=== PATIENT | male | born 1935 | race Caucasian/White ===

== ENCOUNTER 2020-03-16 12:13 | Outpatient (CLI) | payer MEDICARE, MEDICAID, SELFPAY ==
[2020-03-16 13:16] LABS: Alanine Aminotransferase 12 U/L (4-50); Albumin Level 3.9 g/dL (3.5-5.1); Alkaline Phosphatase 46 U/L (38-126); Anion Gap 6 mmol/L (8-16); Aspartate Amino Transferase 22 U/L (17-59); Bilirubin,Total 0.4 mg/dL (0.2-1.3); Blood Urea Nitrogen 34 mg/dL (9-20); Calcium 9.8 mg/dL (8.4-10.2); Carbon Dioxide 36 mmol/L (22-30); Chloride 99 mmol/L (98-107); Estimated Glomerular Filt Rate > 60; Glucose 162 mg/dL (75-110); Potassium 4.1 mmol/L (3.4-5.0); Sodium 141 mmol/L (137-145)
[2020-03-16 13:18] LABS: Hemoglobin A1C 5.8 % (<5.7)
== END 2020-03-16 12:14 | disposition home or self-care (01) ==
PROVIDERS: PCP Internal Medicine; Visit Provider Internal Medicine
DX: E11.40 Type 2 diabetes mellitus with diabetic neuropathy, unspecified (principal); I10 Essential (primary) hypertension
CPT/HCPCS: 36415; 80053; 83036

== ENCOUNTER 2020-11-08 11:53 | Outpatient (CLI) | payer MEDICARE, MEDICAID, SELFPAY ==
[2020-11-08 12:38] LABS: Hemoglobin A1C 6.3 % (<5.7)
[2020-11-08 12:54] LABS: LDL Cholesterol Direct 39 mg/dL
[2020-11-08 13:05] LABS: Alanine Aminotransferase 14 U/L (4-50); Albumin Level 3.9 g/dL (3.5-5.1); Alkaline Phosphatase 46 U/L (38-126); Anion Gap 4 mmol/L (8-16); Aspartate Amino Transferase 25 U/L (17-59); Bilirubin,Total 0.4 mg/dL (0.2-1.3); Blood Urea Nitrogen 36 mg/dL (9-20); Calcium 9.8 mg/dL (8.4-10.2); Carbon Dioxide 37 mmol/L (22-30); Chloride 100 mmol/L (98-107); Cholesterol 265 mg/dL (0-200); Estimated Glomerular Filt Rate > 60; Glucose 207 mg/dL (75-110); Potassium 3.8 mmol/L (3.4-5.0); Sodium 141 mmol/L (137-145)
[2020-11-08 13:11] LABS: Triglycerides 1080 mg/dL (<150)
== END 2020-11-08 11:54 | disposition home or self-care (01) ==
LOC: ANHLAB 11:56
PROVIDERS: PCP Internal Medicine; Visit Provider Nurse Practitioner
DX: E78.5 Hyperlipidemia, unspecified (principal); E11.9 Type 2 diabetes mellitus without complications
CPT/HCPCS: 36415; 80053; 80061; 83036

== ENCOUNTER 2021-03-15 08:37 | Outpatient (CLI) | payer MEDICARE, MEDICAID, SELFPAY ==
[2021-03-15 09:44] LABS: LDL Cholesterol Direct 39 mg/dL
[2021-03-15 09:54] LABS: Alanine Aminotransferase 16 U/L (4-50); Albumin Level 4.1 g/dL (3.5-5.1); Alkaline Phosphatase 43 U/L (38-126); Anion Gap 5 mmol/L (8-16); Aspartate Amino Transferase 31 U/L (17-59); Bilirubin,Total 0.8 mg/dL (0.2-1.3); Blood Urea Nitrogen 38 mg/dL (9-20); Calcium 9.6 mg/dL (8.4-10.2); Carbon Dioxide 35 mmol/L (22-30); Chloride 100 mmol/L (98-107); Cholesterol 266 mg/dL (0-200); Estimated Glomerular Filt Rate > 60; Glucose 162 mg/dL (65-110); Potassium 4.3 mmol/L (3.4-5.0); Sodium 140 mmol/L (137-145)
[2021-03-15 09:59] LABS: Hemoglobin A1C 6.6 % (<5.7)
[2021-03-15 10:31] LABS: Triglycerides 1040 mg/dL (<150)
== END 2021-03-15 08:38 | disposition home or self-care (01) ==
PROVIDERS: PCP Internal Medicine; Visit Provider Internal Medicine
DX: E78.5 Hyperlipidemia, unspecified (principal); E11.40 Type 2 diabetes mellitus with diabetic neuropathy, unspecified; I10 Essential (primary) hypertension; E11.65 Type 2 diabetes mellitus with hyperglycemia; Z79.4 Long term (current) use of insulin
CPT/HCPCS: 36415; 80053; 80061; 83036

== ENCOUNTER 2021-10-02 08:20 | Outpatient (CLI) | payer MEDICARE, MEDICAID, SELFPAY ==
[2021-10-02 08:58] LABS: Alanine Aminotransferase 21 U/L (4-50); Albumin Level 3.8 g/dL (3.5-5.1); Alkaline Phosphatase 52 U/L (38-126); Anion Gap 1 mmol/L (8-16); Aspartate Amino Transferase 30 U/L (17-59); Bilirubin,Total 0.5 mg/dL (0.2-1.3); Blood Urea Nitrogen 40 mg/dL (9-20); Calcium 9.6 mg/dL (8.4-10.2); Carbon Dioxide 37 mmol/L (22-30); Chloride 101 mmol/L (98-107); Cholesterol 306 mg/dL (0-200); Estimated Glomerular Filt Rate > 60; Glucose 184 mg/dL (65-110); Potassium 3.9 mmol/L (3.4-5.0); Sodium 139 mmol/L (137-145)
[2021-10-02 09:08] LABS: LDL Cholesterol Direct 42 mg/dL
[2021-10-02 09:16] LABS: Triglycerides 1123 mg/dL (<150)
[2021-10-02 09:31] LABS: Creatinine Urine 91.7 mg/dL
[2021-10-02 11:04] LABS: Microalbumin Urine Random > 1140.0 mg/L (0-16.7)
== END 2021-10-02 08:21 | disposition home or self-care (01) ==
LOC: ANHLAB 08:24
PROVIDERS: PCP Internal Medicine; Visit Provider Nurse Practitioner
DX: E11.40 Type 2 diabetes mellitus with diabetic neuropathy, unspecified (principal); E78.5 Hyperlipidemia, unspecified
CPT/HCPCS: 36415; 80053; 80061; 82043; 83036

== ENCOUNTER 2021-11-29 14:10 | Observation (INO) | payer MEDICARE, MEDICAID, SELFPAY ==
[2021-11-29] VITALS (13 sets, daily range): BP systolic 129–178; BP diastolic 56–73; PULSE 66–73; RESP 22–31; TEMP 36.5–37.1; O2SAT 90–93; BMI 28.8
--- NOTE | ~2021-11-29 | XR_ITS ---
EXAMINATION: XR chest 2V DATE: 11/29/2021 14:56 INDICATION: Shortness of breath and cough. TECHNIQUE: Frontal and lateral views of the chest were obtained. COMPARISON: Chest 2 views 01/07/2008 FINDINGS: There is mild elevation of right hemidiaphragm. There is a mass in right midlung zone. No p leural effusion or pneumothorax. The heart size is normal. There are surgical clips in left neck and left axilla. IMPRESSION: 1. Mass in right midlung zone suspicious for malignancy. Noncontrast chest CT is recommended. Reviewed, dictated and finalized at location [facility]. IMPRESSION: 1. Mass in right midlung zone suspicious for malignancy. Noncontrast chest CT i s recommended.
--- NOTE | ~2021-11-29 | CT_ITS ---
EXAMINATION: CT diagnostic chest wo con DATE: 11/29/2021 15:32 INDICATION: Mass in right mid lung zone suspicious for malignancy reported on 11/29/2021 2 view chest. Shortness of breath and cough. TECHNIQUE: Computed tomography (CT) of the chest was performed without intravenous contrast. Automate d exposure control and iterative reconstruction technique were employed. Exam dose: 385.39 mGy-cm to jose cruz exam DLP. COMPARISON: 11/29/2021 2 view chest FINDINGS: Up to 4.6 cm anteroposterior 6.2 cm wide right upper lobe irregular soft tissue mass lesion consisten t with right upper lobe pulmonary malignancy. There is superior mediastinal lymphadenopathy, measuring up to 1.6 x 2 cm. There is right paratrachea l lymphadenopathy, measuring up to 1.4 x 1.7 cm. There is extensive right hilar adenopathy. 12 x 16 mm subcarinal lymph node. There is mild right upper lobe atelectasis and posterior segment infiltrate. Normal heart size. No pericardial or pleural effusion. There is extensive coronary artery calcificati on. There is prominent thoracic aortic as well as great vessel calcification. There is mild aneurysmal change of the posterior aortic arch which measures up to 3.5 cm diameter. Included portions of the adrenal glands are unremarkable. There are calcified hepatic and splenic granulomas consistent with old granulomatous disease. Very prominent degenerative change of the cervical spine and diffuse idiopathic skeletal hyperostosis of the thoracic spine. No suspicious osteolytic or osteoblastic lesions are noted.. 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 Reviewed, dictated and finalized at location [facility]. 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
--- NOTE | 2021-11-29 14:15 | ECG_ITS ---
Measurements Intervals [place] Rate: 72 P: 57 WI: 165 QRS: -19 QRSD: 89 T: 74 QT: 397 QTc: 436 Interpretive Statements SINUS RHYTHM INDETERMINATE AXIS INFERIOR MYOCARDIAL INFARCTION , OF INDETERMINATE AGE WITH POSTERIOR EXTENSION [40+ ms Q WAVE AND/OR ST/T ABNORMALITY IN II/aV NO PREVIOUS ECG AVAILABLE FOR COMPARISON Electronically Signed On 11-29-2021 14:46:31 CDT by Omero Page M.D.
--- NOTE | 2021-11-29 14:23 | PC.NURSE ---
reports she thinks patient is having trouble with his sinus drainage and keeps choking on his mucous. His reports it was green at first then blood tinged.
[2021-11-29 14:46] LABS: Basophils Percent Auto 0.4 % (0.2-1.2); Eosinophils Percent Auto 0.3 % (0-4.4); Hematocrit 49.6 % (42.0-52.0); Hemoglobin 15.9 g/dL (14.0-18.0); Immature Granulocyte Absolute 0.02 K/mm3 (0.00-0.031); Immature Granulocyte Percent A 0.3 % (0-0.5); Lymphocytes Absolute Auto 1.17 K/mm3 (0.9-3.2); Lymphocytes Percent Auto 16.8 % (18.3-44.2); Mean Corpuscular HGB Conc 32.1 g/dl (32-36); Mean Corpuscular Hemoglobin 33.8 pg (26-34); Mean Corpuscular Volume 105.3 fl (80-100); Mean Platelet Volume 11.7 fl (7.4-10.4); Monocytes Absolute Auto 0.4 K/mm3 (0.1-0.6); Monocytes Percent Auto 5.5 % (2.6-8.5); Neutrophils Absolute Auto 5.3 K/mm3 (1.3-6.7); Neutrophils Percent Auto 76.7 % (45.5-73.1); Nucleated Red Blood Cells Perc 0.3 % (0.0-0.2); Platelet Count Result 220 k/mm3 (150-375); Red Blood Count 4.71 M/mm3 (4.6-6.20); Red Cell Distribution Width 14.3 % (11.5-14.5)
[2021-11-29 14:57] LABS: Alanine Aminotransferase 147 U/L (6-50); Albumin Level 3.4 g/dL (3.5-5.1); Alkaline Phosphatase 165 U/L (38-126); Anion Gap 4 mmol/L (8-16); Aspartate Amino Transferase 104 U/L (17-59); Bilirubin,Total 0.7 mg/dL (0.2-1.3); Blood Urea Nitrogen 35 mg/dL (9-20); Calcium 8.8 mg/dL (8.4-10.2); Carbon Dioxide 30 mmol/L (22-30); Chloride 105 mmol/L (98-107); Estimated Glomerular Filt Rate > 60; Glucose 284 mg/dL (65-110); Potassium 4.6 mmol/L (3.4-5.0); Sodium 139 mmol/L (137-145)
[2021-11-29] MEDS: ALBUTEROL SULFATE NEB 2.5 MG/0.5 ML INH 5 MG (15:13)
[2021-11-29] MEDS: IPRATROPIUM BR 0.02% INH SOLN 0.5 MG/2.5 ML VIAL INHALATION (15:14)
--- NOTE | 2021-11-29 15:23 | ED.SOB ---
HPI - SOB/Dyspnea General Chief Complaint: Shortness of Breath/Dyspnea Stated Complaint: resp distress Time Seen by Provider: 11/29/21 14:18 History of Present Illness HPI Narrative: Patient is an 86-year-old male who presents ER with shortness of breath. Over the last few days patient has been having sinus congestion with postnasal drip. believes he is having trouble handling the congestion because he has chronic dysphagia related to oral cancer he had in the past. EMS found patient be hypoxic 88% on room air. Patient is not typically oxygen dependent. He denies any chest pain or chest pressure. He does have a coarse cough that is new over the last couple days as well. No known sick contacts as patient has not been leaving his home. Related Data Home Medications Medication Instructions Recorded Confirmed diphenhydramine 25 1 tablet PO HS PRN Insomnia 11/29/21 11/29/21 mg-acetaminophen 500 mg tablet (Tylenol PM Extra Strength) hydrocodone 7.5 mg-acetaminophen 15 ml PO Q4H PRN Pain 11/29/21 11/29/21 325 mg/15 mL oral solution Allergies Allergy/AdvReac Type Severity Reaction Status Date / Time ezetimibe Allergy Severe Confusion Verified 10/03/21 12:19 Review of Systems Review of Systems: All systems reviewed & are unremarkable except as noted in HPI and below Constitutional: Constitutional: Reports chills, Denies fatigue and Denies fever(s) ENT: Reports nasal congestion and Denies sore throat Cardiovascular: Cardiovascular: Denies chest pain Respiratory: Respiratory: Reports cough, Reports dyspnea and Denies wheezing Gastrointestinal: Gastrointestinal: Denies abdominal pain, Denies nausea and Denies vomiting [facility] Past Medical History Medical History Squamous cell carcinoma of head and neck Family History Family History Mother Acute myocardial infarction, Onset Age: 83 Patient's mother is Other Cerebrovascular accident Family history of arthritis Family history of blood dyscrasia Family history of cardiovascular disease Hypertension Social History Social History Smoking packs per day: 2 Smoking cigarettes per day: 40.0 Years smoked: 50 Smoking pack-years: 100.00 Smoking status: Former smoker Second hand tobacco smoke exposure: No Alcohol intake: unknown Substance use: unknown Substance use type: unknown Spiritual care concerns: No Exam Narrative: GENERAL: Chronically ill-appearing, well-nourished, and in no acute distress. HEAD: Normocephalic, atraumatic. EYES: PERRL and EOMI. ENT: Mucous membranes moist. NECK: Supple. Tracheostomy scar noted. CHEST: Coarse rales left mid and lower lung zones with frequent coughing. Clear lung sounds on the right and referred upper airway sounds are not made. HEART: Regular rate and rhythm. Normal peripheral pulses. ABDOMEN: Soft, nontender, nondistended. EXTREMITIES: Normal range of motion. No edema. SKIN: Warm, dry, no rash. NEURO: Alert and oriented x3. PSYCH: Normal mood and affect. Course Course Emergency Course: Patient resting comfortably, improving with neb treatment. Will recommend observation for COPD exacerbation with hypoxia. Also will require work-up for this lung mass. Patient family report that when he hit ended his radiation treatment previously it was just a tiny spot. They have not been to [facility] in a couple of years. [place] Vital Signs Vital signs: Vital Signs Temperature 98.7 F 11/29/21 14:10 Pulse Rate 66 11/29/21 14:10 Respiratory Rate 24 H 11/29/21 14:10 Blood Pressure 169/65 H 11/29/21 14:10 Pulse Oximetry 92 11/29/21 14:10 Oxygen Delivery Room Air 11/29/21 14:10 Temperature 97.8 F 11/29/21 19:16 Pulse Rate 66 0
[2021-11-29 15:25] LABS: Influenza A QL RT-PCR Negative (Negative); Influenza B QL RT-PCR Negative (Negative); SARS-CoV-2 RNA PCR Negative
[2021-11-29] MEDS: methylPREDNISolone SOD SUCC 125 MG VIAL 60 MG IV PUSH (16:50)
--- NOTE | 2021-11-29 17:04 | PC.NURSE ---
Patient's is Corrina. Her phone number is [phone]. She reports she will be back around noon tomorrow.
--- NOTE | 2021-11-29 18:14 | ADMGEN ---
This patient, Ever Quesada, was admitted to Medical Room 340-01. Patient/family oriented to hospital policies and general routines including ID bracelet, bed and alarms, visiting hours, pain management, procedures, bathroom and other care routines, personal items, smoking policy, room service/diet, and visiting hours. Information on how to activate the Rapid Response Team has been discussed. Patient/Family are encouraged to report perceived risks to care and to ask questions if they do not understand what they are told or what they should do.
[2021-11-29 18:37] LABS: Glucose Point of Care 275 mg/dl (65-105)
--- NOTE | 2021-11-29 18:53 | PC.NURSE ---
SAMAN ZELAYA AT BEDSIDE WHEN PT VOICED CONCERNS ABOUT WANTING TO END HIS LIFE.
--- NOTE | 2021-11-29 19:45 | PM.IMHP ---
H&P: HPI History of Present Illness Date/Time: 11/29/21 19:45 Chief Complaint: Shortness of breath. Narrative: This is a very pleasant 86-year-old male with history of oropharyngeal squamous cell carcinoma, lung cancer, prostate cancer, COPD, hypertension, chronic kidney disease, and diabetes who presented to the emergency department via EMS from home for evaluation of shortness of breath. He is very hard of hearing and does not have his hearing aids with him at this time though if spoken to loudly in the right ear he is able to hear reasonably well to answer questions. He had a partial mandibulectomy and neck dissection for his oropharyngeal cancer and thus his speech is slurred but I was able to understand a majority of what he said. His provides additional information at bedside, with the patient's permission. He has a history of tracheostomy and has a chronic G-tube but he does drink water on occasion though he admits that he has difficulty swallowing and will cough almost every time he tries to left to take a drink. The last several days he has developed sinus congestion and postnasal drip and despite a strong cough, he seems to be having difficulties with his secretions. He has been coughing up thick white/light yellow mucus and 2 nights ago he coughed up a fairly large blood clot that he believes came from his lungs. This morning he seemed to be increasingly short of breath and his called 911. On EMS arrival his SpO2 was 88% on room air and he was given a DuoNeb with improvement in aeration and shortness of breath. Chest x-ray showed a mass in the right upper and a subsequent chest CT showed a 4.6 x 6.2 cm right upper lobe mass with lymphadenopathy consistent with lung cancer. Several years ago he was told about a spot on his long however it was felt that these changes were due to previous radiation though he was told on several other occasions that the area was increasing in size. He does not really want to go back to [place] and is okay with seeing the oncologist here however he is not certain that he will pursue treatment. He is going to speak with his and his 3 sons this weekend and he would even consider hospice. Understandably he is a bit anxious when discussing end of life plans and his ultimate goal is to pass comfortably. He is fearful of a painful and in fact when he was receiving treatment for his cancer, he admitted to me that he had thoughts of taking his gun and shooting himself so he was no longer in pain. That was a couple of years ago and he has not had recurrent thoughts of suicide and tells me that he would never do that to his family. At the time my evaluation he is resting comfortably and watching the ball game. He denies fever, chills, sweats, sore throat, chest pain, pleuritic pain, palpitations, abdominal pain, dysuria, and diarrhea. No sick contacts. Review of Systems Review of Systems: Twelve systems were reviewed and are negative except for as per HPI. [facility] Past Medical History Medical History (Updated 11/29/21 @ 22:28 by Belkys Dominguez PA-C) Chronic obstructive pulmonary disease Depression Diabetic peripheral neuropathy Essential (primary) hypertension History of gastrostomy tube placement Insulin dependent type 2 diabetes mellitus Mixed hyperlipidemia Squamous cell carcinoma of head and neck Surgical History Surgical History (Updated 11/29/21 @ 22:12 by Belkys Dominguez PA-C) History of radical neck dissection With partial mandibulectomy, partial palatectomy, and partial maxillectomy with scapular flap and tracheostomy for treatment of oropharyngeal carcinoma. 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 History of tracheostomy Family History Family History Mother Acute myocardial infarction, Onset Age: 83 Patient's mother is
[2021-11-29] MEDS: MORPHINE SULFATE (*CRX) 4 MG/ML INJ IV PUSH (21:36)
[2021-11-29 23:56] LABS: Glucose Point of Care 265 mg/dl (65-105)
[2021-11-30] VITALS (13 sets, daily range): BP systolic 134–148; BP diastolic 42–60; PULSE 69–83; RESP 20–28; TEMP 36.7–36.8; O2SAT 81–98
[2021-11-30] MEDS: methylPREDNISolone SOD SUCC 125 MG VIAL 60 MG IV PUSH ×3 (00:06→12:10)
[2021-11-30] MEDS: Acetaminophen/HYDROcodone ELIXIR (*CRX) 7.5 MG/15 ML UDC PO ×3 (00:58→12:08)
[2021-11-30] MEDS: ALBUTEROL SULFATE NEB 2.5 MG/3 ML INH INHALATION ×4 (05:05→19:12)
[2021-11-30] MEDS: IPRATROPIUM BR 0.02% INH SOLN 0.5 MG/2.5 ML VIAL INHALATION ×4 (05:06→19:11)
[2021-11-30 05:44] LABS: Hemoglobin A1C 8.2 % (<5.7)
[2021-11-30 05:53] LABS: Alanine Aminotransferase 147 U/L (6-50); Albumin Level 3.4 g/dL (3.5-5.1); Alkaline Phosphatase 167 U/L (38-126); Anion Gap 5 mmol/L (8-16); Aspartate Amino Transferase 72 U/L (17-59); Bilirubin,Total 0.7 mg/dL (0.2-1.3); Blood Urea Nitrogen 35 mg/dL (9-20); Carbon Dioxide 30 mmol/L (22-30); Chloride 102 mmol/L (98-107); Estimated CRCL calculation 46 ml/min; Estimated Glomerular Filt Rate > 60; Glucose 327 mg/dL (65-110); Magnesium 2.2 mg/dL (1.6-2.3); Sodium 137 mmol/L (137-145)
[2021-11-30 06:06] LABS: Hematocrit 50.8 % (42.0-52.0); Hemoglobin 15.8 g/dL (14.0-18.0); Mean Corpuscular HGB Conc 31.1 g/dl (32-36); Mean Corpuscular Hemoglobin 33.2 pg (26-34); Mean Corpuscular Volume 106.7 fl (80-100); Mean Platelet Volume 11.5 fl (7.4-10.4); Platelet Count Result 212 k/mm3 (150-375); Red Blood Count 4.76 M/mm3 (4.6-6.20); Red Cell Distribution Width 13.9 % (11.5-14.5); White Blood Count 7.3 K/mm3 (4.5-10.0)
[2021-11-30 06:18] LABS: Prothrombin Time 12.7 Seconds (11.1-14.7)
[2021-11-30 07:07] LABS: Hepatitis B Surface Antigen Negative (Negative)
[2021-11-30 07:12] LABS: HAV RESULT Negative (Negative); Hepatitis B Core IgM Result Negative (Negative)
[2021-11-30 07:24] LABS: Hepatitis C Virus Antibody Negative (Negative)
[2021-11-30 07:59] LABS: Glucose Point of Care 330 mg/dl (65-105)
[2021-11-30] MEDS: INSULIN ASPART (*BKC) 100 UNITS/ML SUB-Q (08:17)
[2021-11-30] MEDS: FLUTICASONE PROPIONATE 0.05% NA SPR 16 GM BTL (*BKC) 2 SPRAY NASAL (08:18)
[2021-11-30] MEDS: ASPIRIN 81 MG ENTERIC TABLET PO (08:18)
[2021-11-30] MEDS: lisinopriL 2.5 MG TABLET PO (08:18)
[2021-11-30] MEDS: INSULIN ASPART (*BKC) 100 UNITS/ML 10 UNITS SUB-Q ×2 (12:09→16:43)
[2021-11-30 12:10] LABS: Glucose Point of Care 465 mg/dl (65-105)
--- NOTE | 2021-11-30 13:04 | PM.IMPN ---
Progress Note: A&P Assessment and Plan (1) Mass of upper lobe of right lung: Code(s): R91.8 - Other nonspecific abnormal finding of lung field Status: Acute Assessment and Plan: Patient with cough and SOB. He had an episode of hemopysis as well. CT chest shows a 4.6 x 6.2 cm right upper lobe mass with extensive lymphadenopathy consistent with right upper lobe carcinoma. He was previously treated at [place] for his oropharyngeal carcinoma but he does not wish to return there at this time. He is considering hospice and will discuss with his family. (2) COPD exacerbation: Code(s): J44.1 - Chronic obstructive pulmonary disease with (acute) exacerbation Status: Acute Assessment and Plan: Shortness of breath improved with DuoNebs and Solu-Medrol. No evidence of pneumonia on imaging but started on azithromycin given the productive cough. No further wheezing so will change to Prenisone. (3) Transaminitis: Code(s): R74.01 - Elevation of levels of liver transaminase levels Status: Acute Assessment and Plan: AST/ALT levels better. Abdominal exam worse today. Ascites? Bladder distention. Possibly ileus. Check CT Abdomen/Pelvis. 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 Continue AccuCheks covering with sliding scale. Hypoglycemia protocol available as needed. Continue current medications. Wean steroids (5) Essential (primary) hypertension: Code(s): I10 - Essential (primary) hypertension Status: Acute Assessment and Plan: Patient's blood pressure was reviewed on 11/30 Blood pressure better controlled today. Will continue current medications. Plan DVT Prophylaxis: SCDs Code status: Full Subjective Date/time seen: 11/30/21 13:04 Interval history: 86yo male with oropharyngeal squamous cell carcinoma, lung cancer, prostate cancer, COPD, HTN, CKD, and DM who is here for shortness of breath. Assuming care. Chart reviewed. When asked how he was feeling, he states not worth a damn . He is having leg pain. He still has the cough but no further hemoptysis. He denies nausea. Exam Narrative: AF 98.2 141/60 72 20 94% ra Gen - NARD lying almost flat in bed Chest - mildly coarse BS CV - RRR S1/S2 Abd - Soft, distended, dull to percussion, bladder does not feel distended. +BS. GTube site clean and dry Ext - No pedal edema Psych - Nml mood and affect Skin - Warm and dry Objective Data Vital Signs Vital Signs: Vital Signs - 24 hr 11/29/21 14:10 11/29/21 14:15 11/29/21 14:42 Temperature 98.7 F Pulse Rate 66 72 Respiratory Rate 24 H Blood Pressure 169/65 H Pulse Oximetry 92 93 Oxygen Delivery Room Air Room Air 11/29/21 14:14 11/29/21 14:31 11/29/21 15:00 Temperature Pulse Rate 73 72 68 Respiratory Rate 30 H 31 H 25 H Blood Pressure 169/65 H 150/56 H Pulse Oximetry 93 91 91 Oxygen Delivery 11/29/21 15:05 11/29/21 16:00 11/29/21 16:53 Temperature Pulse Rate 67 70 Respiratory Rate 25 H 24 H Blood Pressure 169/73 H Pulse Oximetry 93 90 Oxygen Delivery 11/29/21 17:01 11/29/21 18:38 11/29/21 18:42 Temperature 97.7 F Pulse Rate 69 70 Respiratory Rate 27 H 27 H Blood Pressure 172/68 H 178/67 H Pulse Oximetry 92 92 93 Oxygen Delivery Room Air 11/29/21 19:16 11/30/21 05:08 11/30/21 05:09 Temperature 97.8 F Pulse Rate 66 71 71 Respiratory Rate 22 H 22 H 22 H Blood Pressure 129/67 Pulse Oximetry 91 95 Oxygen Delivery Room Air 11/30/21 05:12 11/30/21 05:58 11/30/21 07:25 Temperature 98.2 F Pulse Rate 71 75 69 Respiratory Rate 20 20 20 Blood Pressure 141/60 H Pulse Oximetry 90 Oxygen Deli
[2021-11-30] MEDS: MORPHINE SULFATE (*CRX) 2 MG/ML INJ IV PUSH (16:08)
[2021-11-30 16:41] LABS: Glucose Point of Care > 500 mg/dl (65-105)
[2021-11-30 19:15] LABS: Glucose Point of Care 385 mg/dl (65-105)
[2021-11-30] MEDS: INSULIN ASPART (*BKC) 100 UNITS/ML 8 UNITS SUB-Q (21:34)
--- NOTE | 2021-11-30 21:43 | PC.NURSE ---
PATIENT STATES THAT HE WAS CONCERNED ABOUT HIS BS ELEVATION. HE ATTRIBUTES THE INCREASE TO NIGHTLY TUBE FEEDING AMOUNTS. HE CUTS HIS DAILY AMOUNT IN HALF FOR NIGHT TIME TOTALING 237ML. EDUCATED PATIENT ON CURRENT USE OF STEROIDS AND ELEVATED BS. PATIENT MAINTAINS THAT HE WOULD LIKE HIS FEEDING AMOUNT CUT IN HALF. PHYSICIAN WAS NOTIFIED.
[2021-11-30 22:11] LABS: Glucose Point of Care 367 mg/dl (65-105)
[2021-12-01] VITALS (9 sets, daily range): BP systolic 135–151; BP diastolic 50–69; PULSE 75–90; RESP 20–24; TEMP 35.4–36.9; O2SAT 90–95
[2021-12-01] MEDS: IPRATROPIUM BR 0.02% INH SOLN 0.5 MG/2.5 ML VIAL INHALATION ×3 (01:35→14:24)
[2021-12-01] MEDS: ALBUTEROL SULFATE NEB 2.5 MG/3 ML INH INHALATION ×3 (01:35→14:24)
[2021-12-01] MEDS: MORPHINE SULFATE (*CRX) 2 MG/ML INJ IV PUSH ×3 (05:18→16:22)
[2021-12-01 06:21] LABS: Alanine Aminotransferase 103 U/L (6-50); Albumin Level 3.2 g/dL (3.5-5.1); Alkaline Phosphatase 141 U/L (38-126); Anion Gap 3 mmol/L (8-16); Aspartate Amino Transferase 58 U/L (17-59); Bilirubin,Total 0.6 mg/dL (0.2-1.3); Blood Urea Nitrogen 49 mg/dL (9-20); Calcium 8.5 mg/dL (8.4-10.2); Carbon Dioxide 30 mmol/L (22-30); Chloride 104 mmol/L (98-107); Estimated CRCL calculation 38 ml/min; Estimated Glomerular Filt Rate > 60; Glucose 361 mg/dL (65-110); Potassium 4.4 mmol/L (3.4-5.0); Sodium 137 mmol/L (137-145)
[2021-12-01 07:49] LABS: Glucose Point of Care 343 mg/dl (65-105)
[2021-12-01] MEDS: ASPIRIN 81 MG ENTERIC TABLET PO (09:27)
[2021-12-01] MEDS: lisinopriL 2.5 MG TABLET PO (09:27)
[2021-12-01] MEDS: INSULIN ASPART (*BKC) 100 UNITS/ML SUB-Q (09:31)
[2021-12-01] MEDS: FLUTICASONE PROPIONATE 0.05% NA SPR 16 GM BTL (*BKC) 2 SPRAY NASAL (09:37)
[2021-12-01] MEDS: predniSONE 20 MG TABLET 40 MG PO (09:55)
[2021-12-01 11:21] LABS: Glucose Point of Care 428 mg/dl (65-105)
--- NOTE | 2021-12-01 11:30 | PC.NURSE ---
Provider contacted regarding FSBS. Order 10u now, check fingerstick before next bolus. (between 2-3 per patient.)
[2021-12-01] MEDS: Acetaminophen/HYDROcodone ELIXIR (*CRX) 7.5 MG/15 ML UDC PO (11:51)
[2021-12-01] MEDS: INSULIN ASPART (*BKC) 100 UNITS/ML 10 UNITS SUB-Q (11:51)
[2021-12-01 12:26] LABS: Vitamin B12 > 1000.0 pg/mL (239-931)
--- NOTE | 2021-12-01 12:48 | PM.DS ---
DS: Admitting Diagnosis Discharge Date 12/01/21 Admitting Diagnosis Shortness of breath DS: Discharge Diagnosis Discharge Diagnosis (1) Mass of upper lobe of right lung: Code(s): R91.8 - Other nonspecific abnormal finding of lung field Status: Acute (2) COPD exacerbation: Code(s): J44.1 - Chronic obstructive pulmonary disease with (acute) exacerbation Status: Acute (3) Transaminitis: Code(s): R74.01 - Elevation of levels of liver transaminase levels Status: Acute (4) Insulin dependent type 2 diabetes mellitus: Code(s): E11.9 - Type 2 diabetes mellitus without complications; Z79.4 - senior care (current) use of insulin Status: Acute (5) Essential (primary) hypertension: Code(s): I10 - Essential (primary) hypertension Status: Acute DS: Summary Hospital Course Reason for hospitalization: 86yo male with oropharyngeal squamous cell carcinoma, lung cancer, prostate cancer, COPD, HTN, CKD, and? DM who is here for shortness of breath. Please see H&P for details. Hospital Course: Patient presents with cough and shortness of breath. He did have an episode of hemoptysis as well. CT of the chest shows a 4.6 x 6.2 cm right upper lobe mass with extensive lymphadenopathy consistent with right upper lobe carcinoma. He was previously treated at [place] for his oropharyngeal carcinoma but did not wish to return there. There was concern he may also have COPD exacerbation causing shortness of breath so he was treated with DuoNebs and Solu-Medrol. His glucose became uncontrolled. His shortness of breath improved. We quickly titrated off the steroids. Patient's liver enzymes were mildly elevated. He had some mild abdominal distension but was having bowel movements. He was tolerating his tube feedings. Further evaluation was planned until patient decided to proceed with hospice care. Care coordination was consulted and hospice met with the family and the patient. Plan is for patient to be discharged home today on hospice. Time Spent with Patient Time attestation: Total time spent providing and/or coordinating discharge services: Exam Narrative: AF 98.4 135/50 80 20 92% ra Gen - NARD Chest - clear anteriorly and in the flanks CV - RRR S1/S2 Abd - Soft, mildly distended, +BS. GTube site clean and dry Ext - No pedal edema Psych - Nml mood and affect; happy about discharge plan Skin - Warm and dry DS: Data Data Completed and Pending Labs on day of discharge: Labs from last 24 hours 12/01/21 12/01/21 12/01/21 11:07 07:36 05:10 Sodium 137 Potassium 4.4 Chloride 104 Carbon Dioxide 30 Anion Gap 3 L BUN 49 H D Creatinine 1.10 Estim Creat Clear Calc 38 Estimated GFR > 60 Glucose 361 H POC Capillary Glucose 428 H 343 H Calcium 8.5 Total Bilirubin 0.6 AST 58 ALT 103 H Alkaline Phosphatase 141 H Total Protein 7.0 Albumin 3.2 L Vitamin B12 > 1000.0 H Folate 16.0 11/30/21 11/30/21 11/30/21 21:21 19:11 16:30 Sodium Potassium Chloride Carbon Dioxide Anion Gap BUN Creatinine Estim Creat Clear Calc Estimated GFR Glucose POC Capillary Glucose 367 H 385 H > 500 H* Calcium Total Bilirubin AST ALT Alkaline Phosphatase Total Protein Albumin Vitamin B12 Folate Discharge Plan Discharge Attending physician on discharge: Lon Cottrell Consulting providers: Julio César Westfall Discharging Clinician: Lon Cottrell Anticipated Discharge Date/Time: 12/01/21 12:55 Patient Disposition: Hospice - Home Activity: as tolerated Diet: other - see discharge instructions Discharge Instructions: Continue tube feedings as before Hospice to assume care at home Stand Alone Forms: General Discharge Information Discharge Medications: Continued atorvastatin 40 mg tablet 40 mg PO DAILY Qty: 9
[2021-12-01 16:43] LABS: Glucose Point of Care 333 mg/dl (65-105)
== END 2021-12-01 16:35 | disposition hospice, home (50) ==
LOC: ANHED 14:35 → ANH3MED 17:58
PROVIDERS: Physician Assistant; Admitting Provider Student in an Organized Health Care Education/Training Program; Emergency Provider Emergency Medicine; PCP Internal Medicine; Visit Provider Internal Medicine
DX: R91.8 Other nonspecific abnormal finding of lung field (principal); J44.1 Chronic obstructive pulmonary disease with (acute) exacerbation; R04.2 Hemoptysis; R59.0 Localized enlarged lymph nodes; R74.01 Elevation of levels of liver transaminase levels; R13.19 Other dysphagia; I12.9 Hypertensive chronic kidney disease with stage 1 through stage 4 chronic kidney disease, or unspecified chronic kidney disease; E11.22 Type 2 diabetes mellitus with diabetic chronic kidney disease; N18.9 Chronic kidney disease, unspecified; E78.2 Mixed hyperlipidemia; E11.42 Type 2 diabetes mellitus with diabetic polyneuropathy; F32.A Depression, unspecified; Z20.822 Contact with and (suspected) exposure to COVID-19; Z85.46 Personal history of malignant neoplasm of prostate; Z79.82 Long term (current) use of aspirin; Z79.4 Long term (current) use of insulin; Z85.89 Personal history of malignant neoplasm of other organs and systems; Z87.891 Personal history of nicotine dependence; Z85.118 Personal history of other malignant neoplasm of bronchus and lung; Z93.1 Gastrostomy status; Z79.891 Long term (current) use of opiate analgesic
CPT/HCPCS: 36415; 71046; 71250; 80053; 80074; 82607; 82746; 82948; 83036; 83735; 85025; 85027; 85610; 85730; 87502; 93005; 94640; 96365; 96366; 96375; 96376; 99285; A9270; C9803; G0378; J0456; J1815; J2270; J2930; J7512; U0003; U0005